=== PATIENT | male | born 1945 | race Caucasian/White ===

== ENCOUNTER → 2016-06-06 | Outpatient (CLI) | payer MEDICARE ==
[~2016-06-06] MED LIST: ALLOPURINOL100 MG PO; ASPIRIN EC325 MG PO; BUMEX DPS1 MG PO; CARDURA DPS8 MG PO; CATAPRES-DPS0.1 MG PO; CEFTIN DPS500 MG PO; COUMADIN DPS2 MG PO; DAILY MULTIPLE1 EAC1 PO; DESYREL-DPS50 MG PO; DILAUDID2 MG PO; DIOVAN160 MG PO; FEOSOL-DPS325 MG PO; FLOMAX DPS0.4 MG PO; LIPITOR80 MG PO; LOPRESSOR DPS100 MG PO; MELATONIN3 MG PO; MIRALAX PACKET17 GM PO; NEURONTIN DPS600 MG PO; NORVASC DPS10 MG PO; PLAVIX75 MG PO; PROTONIX40 MG PO; ROCALTROL DP0.25 MCG PO; SENOKOT DPS8.6 MG PO; SENOKOT S1 TAB PO; SURFAK DPS240 MG PO; TYLENOL DPS325 MG PO; VITAMIN B-121000 MCG PO; VITAMIN C250 MG PO; VITAMIN D1000 UNI1 PO; VITAMIN D3400 UNI1 PO; XANAX DPS0.25 MG PO; XANAX DPS0.5 MG PO; ZAROXOLYN2.5 MG PO
== END | disposition home or self-care (01) ==
LOC: THER.SSS 15:24
DX: R51 Headache (principal)

== ENCOUNTER 2016-06-15 18:09 | Inpatient (IN) | payer MEDICARE ==
[~2016-06-15] VITALS: Ht 182.9 cm; Wt 113.1 kg
[~2016-06-15 18:09] MED LIST changes: -ALLOPURINOL100 MG PO; -ASPIRIN EC325 MG PO; -CEFTIN DPS500 MG PO; -COUMADIN DPS2 MG PO; -DESYREL-DPS50 MG PO; -FEOSOL-DPS325 MG PO; -LIPITOR80 MG PO; -LOPRESSOR DPS100 MG PO; -MELATONIN3 MG PO; -MIRALAX PACKET17 GM PO; -NEURONTIN DPS600 MG PO; -NORVASC DPS10 MG PO; -PROTONIX40 MG PO; -ROCALTROL DP0.25 MCG PO; -VITAMIN B-121000 MCG PO; -VITAMIN D1000 UNI1 PO; -XANAX DPS0.5 MG PO
--- NOTE | 2016-06-16 13:34 | HP ---
ADMIT: 06/15/2016 RM/LOC: 413 [facility] MR#: [id number] [facility]#: [id number] [address] [place], [place] [address] SARAH HOPSON [address] [place] [address] History and Physical SEX: M AGE: 71 : 1945 DATE OF SERVICE: CHIEF COMPLAINT: Fall, mental status changes. HISTORY OF PRESENT ILLNESS: This is a 71-year-old male, who has past medical history of coronary artery disease, chronic kidney disease, diabetes, diastolic failure, presented after he was found down at home. He had been a little bit "off" and confused at home over the previous couple days. He had been not feeling very good from shoulder pain. He has known rotator cuff problems. He had taken some hydrocodone and some hydromorphone prior to his fall. He does not really know what caused him to fall, but he says he did try to get up multiple times and fell multiple times, he does not remember much about it. When the EMS came, he could move all extremities, a little bit confused. His thought he slurred speech a little, but everything seems to be back to normal. By this point, he is moving all extremities except for his right arm, he is quite sore because of his shoulder. He says he hurts all over from his fall. He is chronically on anticoagulation and reports he thinks his last INR was in normal range. Current time, he just complains some right side lower abdominal pain that hurt him when he pushes on it. He has been a little constipated over the previous few days, last bowel movement was Friday. He denies any chest pain, palpitations, shortness of breath, or otherwise. PAST MEDICAL HISTORY: Includes anemia; he has had abdominal aneurysm in the past, this was in 2013, ultrasound showed a 3.0. He has an iliac aneurysm, history of BPH with urinary retention. He has had some anxiety, AFib with RVR, Raya's esophagus with low-grade dysplasia. He has chronic diastolic congestive heart failure; coronary artery disease; diabetes, type 2, controlled. He has chronic anticoagulation with Coumadin, gout, hypercalcemia, hyperkalemia, hypertension, history of hypoxia. 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 PAST SURGICAL HISTORY: He has surgeries of laminectomy; shoulder cuff repair, 2 on the left, 1 on the right; tonsils and adenoids; total knee arthroplasty. MEDICATIONS: Per the admission medication list. ALLERGIES: TO AMLODIPINE/BENAZEPRIL AND VERAPAMIL. IMMUNIZATIONS: He had a flu shot this last fall. He had a Pneumovax in 2012 and Tdap in 2013. SOCIAL HISTORY: Mother had breast cancer, hypertension, and heart failure. Father had coronary artery disease and hypertension. Sister with breast cancer, coronary artery disease. He is a former smoker, quit in 1984. He is ADMIT: 06/15/2016 RM/LOC: 413 [facility] MR#: [id number] [address] [place] [id number] MARK ANTHONYSARAH SWEET [address] [place] [address] History and Physical SEX: M AGE: 71 : 1945 . REVIEW OF SYSTEMS: Other complete review of systems obtained and negative except as above. PHYSICAL EXAMINATION: GENERAL: This is a well-appearing 71-year-old gentleman. He is in no apparent distress. He is alert and oriented. VITAL SIGNS: Temp 98.5, blood pressure 134/60, pulse 90, respirations 14. Pain was 8/10. He is 91% on 2 L of oxygen by nasal cannula. HEAD: Normocephalic, atraumatic. NECK: Supple. Trachea midline. HEART: Regular rate and rhythm, but distant. LUNGS: Clear to auscultation bilaterally, but distant. ABDOMEN: Soft, protuberant. Right side abdomen is a little more firm and tender to deep palpation. EXTREMITIES: Lower extremities have 1+ edema bilaterally. He can move all extremities equally bilaterally. He can move all extremities. NEUROLOGICAL: Cranial nerves are intact. LABORATORY AND X-RAY DATA: He had CT of his head and neck, which was okay. Initial CBC showed a white count of 7.5, hemoglobin 7.0, platelets of 320, INR 3.40. His last CBC from March showed a hemoglobin of 10.6. CMP; sodium 139, potassium 3.4, BUN of 100, creatinine of 5.2. Last BUN was 86, creatinine of 4.01, albumin of 2.8. Alk phos, AST, ALT normal. CK is 426, troponin is 0.095, NT-proBNP is 5013. His last INR was May 20 with INR 3.4. ASSESSMENT: 1. Fall. 2. Some confusion. 3. Acute kidney injury on chronic kidney disease. 4. Mild elevated troponin. 5. Abdominal pain. 6. Acute anemia on top of anemia of chronic disease. 7. Chronic heart failure with preserved ejection fraction. 8. Diabetes. 9. Chronic anticoagulation with an INR of 3.41. 10.Obstructive sleep apnea. 11.Coronary artery disease. 12.I was just told by the nurse he had an elevated temperature, I do not ADMIT: 06/15/2016 RM/LOC: 413 [facility] MR#: [id number] [address] [id number] SARAH HOPSON [address] [place], [place] [id number] History and Physical SEX: M AGE: 71 : 1945 really know what it is right now. PLAN: He will be admitted to the hospital. I think he is a little on the dry side. His BUN is higher than normal and creatinine is elevated. To control his pain the best we can, give him some IV fluid, hold his Coumadin, checking a stat CT of his abdomen and pelvis. Because of his pain and acute drop in his hemoglobin, I am afraid he may have a bleed here. We will have him type and hold 2 units and then recheck his hemoglobin, it has been about 4 hours, so we are going to recheck hemoglobin now to make sure we are not trending down very quickly. We are to have labs checked for the morning with a CBC and a BMP. I am going to do a chest x-ray given he is on a little oxygen right now. Best Casanova MD/ olesya JOB #: [id number] CC: Best Casanova, Attending Physician Snow Nash, Family Physician
--- NOTE | 2016-06-16 19:34 | ER ---
ADMIT: 06/15/2016 RM/LOC: 413 [facility] MR#: [id number] [address] [address] SARAH HOPSON [address] [place] [address] Emergency Room Report SEX: M AGE: 71 : 1945 DATE: 06/15/2016 CHIEF COMPLAINT: Fall. HISTORY OF PRESENT ILLNESS: The patient is a 71-year-old male, who was last seen at 9:30 this morning. He has been having difficulty ambulating at home due to weakness, pending right rotator cuff repair, off anticoagulants since Friday, was transported by [place] with [facility]. Ogden Stroke Scale 0. The patient is a poor historian, but states for the past week, he has been increasingly weak much more so since Friday. Denies any fevers, chills, cough, substernal chest pain though he hurts everywhere in his body. Does admit to nausea, occasional vomiting. No diarrhea or urinary symptoms. ALLERGIES: NONE. MEDICATIONS: Please see nurse's MAR. ILLNESSES: Chronic renal failure, baseline creatinine 2.6; type 2 diabetes; hypertension; DJD; CHF; coronary artery disease, status post multiple PCI stents; status post CABG; GERD; kidney stones; skin cancer; obstructive sleep apnea with CPAP; BPH; anemia of chronic disease. OPERATIONS: Bilateral rotator cuff repair, left prepatellar bursectomy, multiple skin cancer removals, CABG, and PCI stents. 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 Quit smoking many years ago. FAMILY HISTORY: Negative per chart review. REVIEW OF SYSTEMS: A 12-point review of systems negative for all other systems, illnesses, or operations except as outlined above. PHYSICAL EXAMINATION: VITAL SIGNS: Temp 97; pulse 78; respirations 18; BP 107/58; SaO2 of 88% on room air, 93% on 2 L. GENERAL: Nontoxic, non-diaphoretic without jaundice or icterus. HEENT: Normocephalic. No evidence of epistaxis, rhinorrhea, or otorrhea. NECK: Supple without meningismus. Good carotid upstroke and volume without bruit. CHEST: Clear. Breath sounds equal, though diminished without rales, rhonchi, or wheeze. HEART: Regular rate, irregular rhythm with occasional extrasystole. Trace ankle edema noted. ABDOMEN: Obese, nontender, nondistended without mass or megaly. Bowel sounds hypoactive. EXTREMITIES: No evidence of Homans sign, synovitis, or dermatitis. NEURO: EOMI. PERRLA. No lateralizing signs noted. MENTAL STATUS: Alert, delirious. No hallucinations noted. ADMIT: 06/15/2016 RM/LOC: 413 [facility] MR#: [id number] [address] [address] MARK ANTHONYSARAH [address] [place] [address] Emergency Room Report SEX: M AGE: 71 : 1945 DIGITAL RECTAL: Moderate amount of stool in rectal vault. MEDICAL DECISION MAKING: CT head and neck shows no acute findings. Chest x- ray shows persistently elevated right hemidiaphragm unchanged from previous. Pelvis and right femur negative. EKG shows sinus rhythm with paired PVCs and lateral T-wave changes unchanged from previous. Creatinine 5.2, baseline 2.6; potassium 3.4; CK 426; troponin 0.095; BNP 5013; CRP 18.8; INR 3.41; lactic 1.6; hemoglobin 7.0, baseline 9.0; procalcitonin 0.36. Occult blood negative. We discussed findings and disposition with Dr. Casanova, who agreed to admit and gave orders to nursing staff. DIAGNOSES: 1. Hjqqi-ia-xyyjxif renal failure. 2. Anemia related to wgjis-gp-jolnchn renal failure. 3. Mechanical fall related to delirium from mvaau-gt-zfmblus renal failure. 4. Anticoagulated. 5. Chronic right rotator cuff syndrome, pending repair. RECOMMENDATION: Admit inpatient telemetry for Dr. Nash. ADMISSION/DISCHARGE CONDITION: Fair. CODE STATUS: The patient is a full code. Santos Clements MD/ angelal JOB #: [id number] CC: Best Casanova MD, Attending Physician Snow Nash MD, Family Physician
--- NOTE | 2016-06-18 10:44 | CO ---
ADMIT: 06/15/2016 RM/LOC: 413 [facility] MR#: [id number] [address] [facility] [address] [place] [phone] SARAH HOPSON [address] [place] [address] Consultation SEX: M AGE: 71 : 1945 DATE OF CONSULTATION: 06/17/2016 ATTENDING PHYSICIAN: Best Casanova CONSULTING PHYSICIAN: Isabel Rider MD REASON FOR CONSULTATION: Chronic kidney disease stage 5, anemia in chronic kidney disease. HISTORY OF PRESENT ILLNESS: David is a 71-year-old gentleman, who has advanced chronic kidney disease. I had last seen him in my clinic in the month of April. We had made plans for his advanced chronic kidney disease at this time, which had included an evaluation of vascular surgery and eventual goal of pursuing hemodialysis when he was to need renal replacement therapy. He presented to the hospital 2 days ago after having had 3 falls within a day. He notes that he had been feeling weak for about 3 days prior to this and had not been eating well. He has had some difficulty sleeping at night. He has also noticed some tremors. Otherwise, he denies any nausea or dyschezia. Appetite is okay now, but it has not been that great prior to his admission. He has been requiring high dose diuretics to maintain his volume status and his edema seems to be fairly well controlled. He denies any lower extremity edema. Denies any breathing complaints. He has pain in his right shoulder. 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 He has no other complaints. REVIEW OF SYSTEMS: A complete review of systems is negative in detail except as mentioned in history of present illness above. PAST MEDICAL HISTORY: 1. Hypertension. 2. Type 2 diabetes mellitus. 3. Coronary artery disease, status post CABG. 4. Depression. 5. Dyslipidemia. 6. Chronic kidney disease stage 5. 7. Renal osteodystrophy. ALLERGIES: NO KNOWN DRUG ALLERGIES. MEDICATIONS: Reviewed in the chart. 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 Lives in [place] with his . Quit smoking in the year 1993. Occasional alcohol use. No recreational drug use. FAMILY HISTORY: No family history of chronic kidney disease or renal replacement therapy. PHYSICAL EXAMINATION: VITAL SIGNS: Temperature 96.6 Fahrenheit, pulse 59, blood pressure 123/70. Ins and outs over the last 24 hours have been around 2 ADMIT: 06/15/2016 RM/LOC: 413 [facility] MR#: [id number] [address] [address] SARAH HOPSON [address] [place] [address] Consultation SEX: M AGE: 71 : 1945 L in and 2.[address] of urine output. GENERAL: He is in bed and appears pale. HEENT: Head is nontraumatic and normocephalic. Pale conjunctivae. Dry mucosa. NECK: Supple. No JVD. CHEST: Clear to auscultation CVS: Regular rhythm. S1 and S2 heard. No rubs, murmurs, or gallops. ABDOMEN: Soft, nontender. EXTREMITIES: Trace lower extremity edema. SKIN: No rash or nodules. NEUROLOGIC: Alert, awake, and oriented x3. He does have asterixis. MUSCULOSKELETAL: Major joints within normal limits. Range of motion within normal limits. PSYCHIATRIC: Affect and memory within normal limits. LABORATORY DATA: Reviewed. BMP with sodium 139, potassium 3.8, CO2 of 28, BUN 93, creatinine 4.6, hemoglobin 6.7, calcium 8.8, and albumin 2.8. Serum iron was 22, TIBC 311, and ferritin level was 543. ASSESSMENT/PLAN: 1. Chronic kidney disease stage 5. 2. Azotemia/uremia. 3. Anemia - iron deficiency plus anemia of chronic kidney disease. 4. Renal osteodystrophy. He does have subtle uremic symptoms such as tremors and inability to sleep at night. He also has an asterixis that could likely be secondary to uremia. He is getting iron as well as Aranesp and blood transfusion for his anemia. He will continue calcitriol for his renal osteodystrophy. ADMIT: 06/15/2016 RM/LOC: 413 [facility] MR#: [id number] [address] [address] SARAH HOPSON [address] [place] [address] Consultation SEX: M AGE: 71 : 1945 He has not yet followed up with Vascular Surgery and he would likely need to do that as an outpatient. Considering his uremic symptoms and other sequelae of chronic kidney disease, I do think he will benefit from renal replacement therapy. We have had these discussions previously and he is agreeable to proceeding with hemodialysis at this time. He would want to discuss this with his as well. I will plan to obtain a dialysis catheter by Interventional Radiology and start hemodialysis with the eventual goal of transitioning him to home hemodialysis. Thank you for this consultation and allowing me the opportunity to participate in this patient's care. Please do not hesitate to contact me with any questions. Isabel Rider MD/ olesya JOB #: [id number] CC: Best Casanova, Attending Physician Snow Nash, Family Physician
--- NOTE | 2016-06-20 09:09 | CO ---
ADMIT: 06/15/2016 RM/LOC: 413 [facility] MR#: [id number] [address] [address] SARAH HOPSON [address] [place] [address] Consultation Report SEX: M AGE: 71 : 1945 DATE OF CONSULTATION: 06/19/2016 ATTENDING PHYSICIAN: Best Casanova CONSULTING PHYSICIAN: Palmer Rodriguez MD REASON FOR CONSULTATION: Anemia, rule out upper gastrointestinal bleed. HISTORY OF PRESENT ILLNESS: Sarah is a very pleasant, 71-year-old male, who has been admitted to the hospital back on the for a fall, mental status changes, and acute kidney injury. At that time, he was also found to be anemic with a hemoglobin around 7. Since his hospital stay, he has received a couple transfusions of packed red blood cells. Today, he endorses some weakness, nausea, and abdominal pain. His abdominal pain is more dull and diffuse throughout his abdomen. His last bowel movement was yesterday, which did appear to be dark, but since then, he has been constipated, bowel movement prior to that was about a week ago. He denies any hematemesis, bright red blood per rectum. Of note, home med list includes Coumadin, aspirin, and Plavix. He has a pretty extensive cardiac history, please see below. His last EGD and colonoscopy was performed approximately two years ago, performed in [place], which at that time, they found some benign-appearing polyps and hiatal hernia. He does have a history of Raya's esophagus. PAST MEDICAL HISTORY: Significant for: 1. Coronary artery disease. 2. Abdominal aortic aneurysm. 3. Atrial fibrillation. 4. Raya's esophagus. 5. Anxiety. 6. Diastolic heart failure. 7. Type 2 diabetes. 8. Hypertension. 9. Hypoxemia. 10.Idiopathic peripheral neuropathy. 11.Insomnia. 12.Lumbar disc disease. 13.Hyperlipidemia. 14.Urolithiasis. 15.PATRICK. 16.Osteoarthritis. 17.Pulmonary hypertension. 18.Restless legs syndrome. 19.CA x3. PAST SURGICAL HISTORY: 1. EGD and colonoscopy last performed two years ago, please see HPI. 2. Cardiac stent x4. 3. CABG x3. 4. Tonsillectomy and adenoidectomy. ADMIT: 06/15/2016 RM/LOC: 413 [facility] MR#: [id number] [address] [address] SARAH HOPSON [address] [place] [address] Consultation Report SEX: M AGE: 71 : 1945 5. Laminectomy. 6. Shoulder cuff repair. 7. TKA. ALLERGIES: NO KNOWN DRUG ALLERGIES. MEDICATIONS: Well documented in chart. FAMILY HISTORY: The patient reports some GI disturbances with his sister, who is now . He cannot determine exactly what the pathology was. SOCIAL HISTORY: The patient is a former smoker, but quit 35 years ago. He is a rare alcohol user, but denies any illicit drug use. REVIEW OF SYSTEMS: CONSTITUTIONAL: The patient denies any fever, chills, or night sweats. The rest of comprehensive 10-point review of systems was performed and all other systems are negative. PHYSICAL EXAMINATION: GENERAL: The patient is in no acute distress. He is alert and oriented. HEENT: Head is normocephalic and atraumatic. EOMS are intact. Conjunctivae free of icterus, erythema, or pallor. Pinnae, free of deformities. Nose, midline. No tracheal deviation. NECK: Supple. SKIN: Negative for jaundice, clubbing, edema, pallor, or cyanosis. LUNGS: Normal respiratory effort. HEART: Distal pulses intact. Regular rate and rhythm at this time. ABDOMEN: Soft, nondistended, some mild tenderness in the epigastric region. NEURO: Grossly intact. ADMIT: 06/15/2016 RM/LOC: 413 [facility] MR#: [id number] [address] [address] SARAH HOPSON [address] [place] [address] Consultation Report SEX: M AGE: 71 : 1945 LABORATORY DATA: Hemoglobin is 9.0. ASSESSMENT: Anemia, question upper gastrointestinal blood loss. PLAN: The plan is to have the patient undergo EGD performed by Dr. Rodriguez tomorrow. I discussed the risks, alternatives, benefits, and complications of the procedure with the patient to which he has agreement of this plan. I had all his questions answered, and would like to proceed. I will get him on the schedule, get him consented and see him tomorrow. Thanks for the consultation of this patient. MATTHIAS Grant / Palmer Rodriguez MD / olesya JOB #: [id number] CC: Best Casanova, Attending Physician Snow Nash, Family Physician
[2016-06-22] MEDS ORDERED: LOPRESSOR DPS100 MG PO (14:50)
[2016-06-22] MEDS ORDERED: ASPIRIN EC325 MG PO (14:50)
[2016-06-22] MEDS ORDERED: PROTONIX40 MG PO (14:51)
[2016-06-22] MEDS ORDERED: NEURONTIN DPS600 MG PO (14:51)
[2016-06-22] MEDS ORDERED: DESYREL-DPS50 MG PO (14:51)
[2016-06-22] MEDS ORDERED: XANAX DPS0.5 MG PO (14:52)
[2016-06-22] MEDS ORDERED: LIPITOR80 MG PO (14:53)
[2016-06-22] MEDS ORDERED: FEOSOL-DPS325 MG PO (14:53)
[2016-06-22] MEDS ORDERED: COUMADIN DPS2 MG PO (14:54)
[2016-06-22] MEDS ORDERED: ALLOPURINOL100 MG PO (14:54)
[2016-06-22] MEDS ORDERED: VITAMIN D1000 UNI1 PO (14:54)
[2016-06-22] MEDS ORDERED: NORVASC DPS10 MG PO (14:55)
[2016-06-22] MEDS ORDERED: ROCALTROL DP0.25 MCG PO (14:55)
[2016-06-22] MEDS ORDERED: MELATONIN3 MG PO (14:56)
[2016-06-22] MEDS ORDERED: MIRALAX PACKET17 GM PO (14:57)
[2016-06-22] MEDS ORDERED: CEFTIN DPS500 MG PO (14:57)
[2016-06-22] MEDS ORDERED: VITAMIN B-121000 MCG PO (14:57)
[2016-06-22] MEDS ORDERED: DILAUDID2 MG PO (14:58)
--- NOTE | 2016-06-24 12:00 | CO ---
ADMIT: 06/15/2016 RM/LOC: 413 [facility] MR#: [id number] [facility]#: [id number] [address] [address] SARAH HOPSON [address] [place] [address] Consultation SEX: M AGE: 71 : 1945 DATE OF CONSULTATION: 06/17/2016 ATTENDING PHYSICIAN: Best Casanova CONSULTING PHYSICIAN: Kelly Hobson MD CHIEF COMPLAINT: Right shoulder pain. HISTORY: This 71-year-old gentleman presented to the emergency room after a fall at home. He was found confused and unsure as to when he fell, but he said he has tried getting up multiple times and was unable to. He actually had pain in his right shoulder prior to that time, and had an appointment with me today in my office which obviously he did not keep because of his hospitalization over the weekend. His past medical history is significant for coronary artery disease, chronic kidney disease, diabetes, and diastolic heart failure. He is on chronic anticoagulation. His primary complaint as I evaluate him here in the hospital is complaints of his right shoulder pain. He says it is painful enough that he cannot really even raise that. He had x- rays of his clavicle but not any dedicated shoulder films. PAST MEDICAL HISTORY: As indicated he has a history of coronary artery disease, chronic kidney disease, diabetes, diastolic heart failure, benign prosthetic hypertrophy, Raya's esophagus, type 2 diabetes, history of gout, peripheral neuropathy, spinal stenosis, obstructive sleep apnea. PAST SURGICAL HISTORY: Includes: 1. Lumbar laminectomy. 2. Right rotator cuff repair x2. 3. Left rotator cuff repair x1. 4. Tonsillectomy and adenoidectomy. 5. Total knee arthroplasty. MEDICATIONS: Listed in the chart. ALLERGIES: HE IS ALLERGIC TO VERAPAMIL AND AMLODIPINE. SOCIAL HISTORY: He and his live in [facility]. His physician is Dr. Nash here in town. He was a smoker at one time, but he says he quit back in the mid 80s. 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 FAMILY HISTORY: Positive for cancer, hypertension, heart failure. REVIEW OF SYSTEMS: Noncontributory. ADMIT: 06/15/2016 RM/LOC: 413 [facility] MR#: [id number] [address] [address] SARAH HOPSON [address] [place] [address] Consultation SEX: M AGE: 71 : 1945 PHYSICAL EXAMINATION: Marked tenderness about the right shoulder and marked pain with attempts at passive range of motion. No obvious effusion. Clavicle x-rays were negative. There are no shoulder x-rays at this time. IMPRESSION: Chronic right shoulder pain. Rule out rotator cuff arthropathy. RECOMMENDATIONS: 1. Dedicated shoulder films AP and Y scapular view of the shoulder. 2. When he is stable enough, we would like to obtain an MRI of the right shoulder. 3. I will re-evaluate the patient once we have been able to evaluate both the radiographs and MRI and proceed accordingly. Kelly Hobson MD/ olesya JOB #: [id number] CC: Best Casanova, Attending Physician Snow Nash, Family Physician
--- NOTE | 2016-06-28 17:29 | CO ---
ADMIT: 06/15/2016 RM/LOC: [facility] MR#: [id number] [address] [address] SARAH HOPSON [address] [place] [address] Consultation SEX: M AGE: 71 : 1945 DATE OF CONSULTATION: 06/18/2016 ATTENDING PHYSICIAN: Best Casanova CONSULTING PHYSICIAN: Donald Hyatt MD REASON FOR CONSULT: History of atrial fibrillation and coronary artery disease. This is Екатерина Delacruz RN, scribing for Dr. Donald Hyatt. HISTORY OF PRESENT ILLNESS: Jovi is a pleasant, 71-year-old gentleman, I am familiar with, and I have been asked to see in Cardiology consultation by Dr. Snow Nash in regard to his history of coronary artery disease and atrial fibrillation. He follows regularly with me at [facility] and was last seen in January of 2016. He has history of paroxysmal atrial fibrillation, hyperlipidemia, hypertension, diabetes, and former tobacco use. He also has history of coronary disease, status post 3-vessel bypass in 2001 [place]BERRY to [place], radial artery graft OM2 and SVG to PDA. Last cardiac catheterization was in 2013 showing radiograph widely patent, SVG to right PDA 50%, ostial, mid, and distal lesions, and MAYBERRY to L[place] widely patent. After his last office visit, he did have ABIs performed, and they did not show any significant disease. He does have history of sleep apnea and uses BiPAP at home. Holter monitor done in 2013, did not demonstrate any evidence of atrial fibrillation. He has been on Coumadin for his history of atrial fibrillation along with Plavix and aspirin for his history of coronary disease. Jovi presented to [facility] by EMS after being found unconscious. He has been following with Nephrology and has been teetering on needing dialysis for a period of time, and he is being working with Dr. Rider regarding that. He was found unconscious, sounds like he had taken some Lortab also, and by the time EMS arrived, he was alert and able to move all extremities. Since this hospitalization, he has not had any significant arrhythmias or bradycardia and has not had any further syncopal episodes. He had stopped all of his anticoagulation medications and anti-platelet medications in anticipation of needing a right shoulder surgery and was actually supposed to see Dr. Hobson around the time that he was admitted. He denies any chest pain, shortness of breath, palpitations, peripheral edema, or orthopnea. He is now requiring hemodialysis for acute on chronic stage 5 chronic kidney disease. PAST MEDICAL HISTORY: 1. Atrial fibrillation. 2. Chronic diastolic heart failure. 3. Coronary artery disease as outlined above. 4. Former tobacco use. 5. Hypertension. 6. Hyperlipidemia. 7. Diabetes. ADMIT: 06/15/2016 RM/LOC: [facility] MR#: [id number] [address] [place] [id number] MARK ANTHONY SARAH [address] [place] [address] Consultation SEX: M AGE: 71 : 1945 8. AAA of 3.8 cm widest measurement. 9. Pulmonary hypertension. 10.Obstructive sleep apnea, on BiPAP. 11.Dysphagia. 12.Raya's esophagus. 13.BPH. 14.Kidney stones. 15.Acute on chronic kidney disease, stage 5. 16.Lumbar disc disease. 17.Osteoarthritis. 18.Gout. 19.Acute on chronic anemia. 20.Restless legs syndrome. 21.Idiopathic peripheral neuropathy. 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 23.Anxiety. 24.Insomnia. 25.Chronic headaches. PAST SURGICAL HISTORY: Includes: 1. Septoplasty. 2. Lithotripsy. 3. Tonsillectomy with adenoidectomy. 4. Right rotator cuff repair x1. 5. Left rotator cuff repair x2. 6. Laminectomy. 7. Total knee arthroplasty. ALLERGIES: NORVASC, BENAZEPRIL, AND VERAPAMIL. MEDICATIONS: Current medications include: 1. Desyrel 50 at bedtime. 2. Iron 325 at bedtime. 3. Lipitor 80 at bedtime. 4. MiraLax 17 daily. 5. Neurontin 600 at bedtime. 6. Rocaltrol 0.25 Friday, Friday, and Friday. 7. Toprol-XL 100 b.i.d. 8. Vitamin B12 of 1000 mg daily. 9. Zyloprim 200 daily. 10.NovoLog a.c. and at bedtime. 11.Lasix 40 IV one time dose yesterday. 12.Rocephin 2 g IV q.24 hours. FAMILY HISTORY: Positive family history of heart disease in dad with coronary artery disease. Positive family history of breast cancer in mom and sister. SOCIAL HISTORY: Jovi is . He lives at home with his . He denies ADMIT: 06/15/2016 RM/LOC: [facility] MR#: [id number] [address] [place] [id number] [place] [address] Consultation SEX: M AGE: 71 : 1945 any special diet, alcohol, or drug use. He quit smoking in 1984. REVIEW OF SYSTEMS: GENERAL: Denies any recent fatigue, fever, chills, or sweats or weight changes. He has been working on weight loss, in over several months, he has lost about 30 pounds. EYES: Denies double vision, blurred vision, cataracts, or glaucoma. ENT: Denies hearing loss or problems with nose, mouth or throat RESPIRATORY: Pulmonary hypertension and obstructive sleep apnea, on BiPAP. Denies any hemoptysis. GASTROINTESTINAL: History of low-grade dysphagia, Raya's esophagus. Denies any acid reflux currently or GI bleeding. GENITOURINARY: History of kidney stones with lithotripsy. He has acute on chronic kidney disease stage 5, requiring hemodialysis. MUSCULOSKELETAL: History of lumbar disc disease, osteoarthritis, and gout. ENDOCRINE: History of diabetes. Denies thyroid disease. HEMATOLOGY: Acute on chronic anemia. Denies any cancer. NEUROLOGIC: History of restless legs syndrome, idiopathic peripheral neuropathy, phrenic nerve palsy. No stroke or seizure. PSYCHIATRIC: History of anxiety. PHYSICAL EXAMINATION: VITAL SIGNS: Blood pressure 128/57, heart rate 64, respirations 16, temperature 98.2, oxygenation 94% on O2. SKIN: [place], warm and dry. EYES: Sclerae clear. No xanthelasmas. ENT: Oral mucosa is pink and moist. No jugular venous distention or carotid bruits. CHEST: Respirations are even and unlabored. Lungs are clear to auscultation. HEART: Irregularly irregular. No murmurs, gallops, or rubs. ABDOMEN: Soft and nontender. MUSCULOSKELETAL: Gait is normal. EXTREMITIES: Discolored, trivial edema bilaterally. PSYCHIATRIC: Alert and oriented. Mood and affect are appropriate. DIAGNOSTIC DATA: Sodium 138, potassium 3.7, BUN 91, creatinine 4.1, glucose 104, INR 1.64. White blood cell count 5.1, hemoglobin 8.5, hematocrit 27.0, and platelets 317. Parathyroid 180.6. ASSESSMENT AND PLAN: 1. Coronary artery disease. 2. Chronic kidney disease, stage 5. 3. Right shoulder pain. 4. Sleep apnea. 5. Diabetes. 6. History of atrial fibrillation. Jovi is a pleasant 71-year-old male with coronary artery disease, status post bypass 2001, and paroxysmal atrial fibrillation. He struggles with shoulder pain and is admitted with weakness and now starting dialysis for progressive chronic kidney disease. ADMIT: 06/15/2016 RM/LOC: [facility] MR#: [id number] [address] [address] SARAH HOPSON [address] [place] [address] Consultation SEX: M AGE: 71 : 1945 I have reviewed his chart. I recommend continuing Coumadin for atrial fibrillation and continuing aspirin for his coronary artery disease and he can stop Plavix at this time. He has had no angina or indication of significant arrhythmias that would have caused his syncope. I think he is at acceptable and [id number] risk if he requires surgical intervention of his shoulder. Thank you for the consultation. I have read and agree with the documentation that has been completed regarding this visit. By signing this record, I attest that the documentation was completed in my physical presence and is an accurate record of the encounter. Екатерина Delacruz RN / Donald Hyatt MD / olesya JOB #: [id number] CC: Best Casanova, Attending Physician Snow Nash, Family Physician
--- NOTE | 2016-07-01 01:17 | DS ---
ADMIT: 06/15/2016 RM/LOC: [facility] MR#: [id number] [address] [address] SARAH HOPSON [address] [place] [address] Discharge Summary SEX: M AGE: 71 : 1945 ADMISSION DATE: 06/15/2016 DISCHARGE DATE: 06/21/2016 DIAGNOSES: 1. Acute on chronic renal failure. 2. Fall at home. 3. Elevated troponin. 4. Atrial fibrillation. 5. Anticoagulation. 6. Diabetes. 7. Anemia-chronic disease with acute decrease. 8. End-stage renal disease with uremia. 9. Chronic heart failure. 10.Coronary artery disease. 11.Obstructive sleep apnea. 12.Hypertension. 13.Right lower lobe infiltrate. 14.AAA-slight increase size 2.9 up to 3.8 cm. 15.Iliac artery aneurysm. 16.Raya's esophagus. PROCEDURE: 1. PRBC x3. 2. CT head 06/15/2016. 3. CT cervical spine 06/15/2016. 4. CT abdomen and pelvis 06/15/2016. 5. Dialysis catheter 06/21/2016 temporary and 06/19/2016 tunneled. 6. MRI right shoulder 06/18/2016. 7. Right shoulder steroid injection 06/18/2016. 8. EGD 06/19/2016. 9. Dialysis multiple times. CONSULT: 1. Kelly Hobson MD. 2. Isabel Rider MD. 3. FANTA. 4. Surgery. REASON FOR HOSPITALIZATION: Fall, see dictated H and P. LABORATORY AND X-RAY DATA: Sodium 139 down to 138, potassium 3.4 (final value 3.3), chloride 102 (final value 101), BUN 100 down to 27, creatinine 5.2 down to 2.5. Calcium 8.8, phosphorus 4.4, total bilirubin 0.3, total protein 7, albumin 2.8, alkaline phosphatase 31, AST 15, iron 22, TIBC 311, CK 426, CK-MB 3.2, troponin 0.095, proBNP 5013. CRP 18.8, INR 3.41 on admission with 1.32 final value on the 15. Blood sugars were variable but actually pretty good. White count 8.6, hemoglobin 7 (did go down to 6.7, final value 9.9), platelet count 361. Sedimentation rate 43, hepatitis B core IgM and hepatitis BE antibody both negative, procalcitonin 0.36, lactic acid 1.6, PTH was 180.6, ADMIT: 06/15/2016 RM/LOC: [facility] MR#: [id number] [address] [place] [id number] [facility] [address] [place] [address] Discharge Summary SEX: M AGE: 71 : 1945 hepatitis B surface antigen and hepatitis C antibody all negative. On 06/18/2016, HIV 1 and 2 were negative. EGD biopsy with no abnormalities. CT scan of the head was normal. CT scan of the cervical spine with degenerative changes. Chest x-ray with discoid atelectasis of the right base. X-ray of the pelvis and femur were unremarkable. CT scan of the abdomen and pelvis with increase in size of the abdominal aortic aneurysm and a left iliac artery aneurysm as well as atelectasis of the right lower lobe. The abdomen measures 3.8 cm up from 2.9, and the iliac artery is 2.3 up from 2. X-ray of the clavicle showed degenerative changes. MRI of the shoulder with chronic full- thickness rotator cuff tear, large joint effusion, and some DJD. Final chest x-ray with elevated right hemidiaphragm noted. COURSE IN HOSPITAL: Sarah was admitted after a fall at home. He was noted to be in acute decompensation of his renal failure. Morphine was given for pain as he was quite uncomfortable. Hydrocodone and Dilaudid were also ordered. Coumadin was held due to his INR being elevated. His hemoglobin was down, he was given 1 unit of blood initially and then unfortunately continued to decrease so we gave him 2 more and then it stabilized. With regards to his renal function, there was no obvious cause of decompensation except for the fact that he had an dose increase in his diuretic therapy recently, and he was taking pain medications because of his shoulder. He was given Aranesp because of his anemia and started on Rocephin because of the pulmonary abnormalities. In looking at his decompensation and the fact that things were not improving very well, I did have Dr. Rider see him who has seen in the past, and he was supposed to be getting a fistula placed. Blood count was still low so he was given a total of 3 units of blood. INR remained high so his vitamin K was given at 2.[address] Hobson was asked to see for his shoulder as he has been seeing him as an outpatient. In addition, Cardiology was asked to see because of his underlying issues and whether or not to be a candidate for anything. He did get started on dialysis due to his problems. He tolerated this quite well and underwent it multiple times. He had a temporary and subsequently a tunneled catheter placed with success. MRI of the shoulder showed the abnormalities. An injection of steroids was tried to see if that would help. [facility] was contacted again and just followed along. They felt he did not need to continue the Plavix, but he would stay on aspirin and Coumadin. If needed, he could do a surgical intervention of his shoulder in their opinion. He continued with dialysis and continued to improve. He had minimal if any symptoms of his lung issues. We did go ahead and frame changer to oral medication to complete a 10 day course on discharge. Because of his anemia and history of Raya's, an EGD was performed and thankfully everything was fine. He had a final dialysis and felt ready to be dismissed. He will have close followup. His Coumadin will be decreased. It was felt that he would be ready for discharge. He is going to be having dialysis early Friday and then going to [place] to get a fistula placed. He will also have a pro time on that day. DISCHARGE MEDICATIONS: 1. Coumadin 2 mg 1/2 pill daily, which was decreased as I know he will be ADMIT: 06/15/2016 RM/LOC: [facility] MR#: [id number] [address] [address] SARAH HOPSON [address] [place] [address] Discharge Summary SEX: M AGE: 71 : 1945 having a fistula placed very soon so we will need to stop it anyway. Other medications include: 1. Desyrel 50 mg at bedtime. 2. Iron 325 daily. 3. Lipitor 80 mg at bedtime. 4. Melatonin 9 mg at bedtime. 5. MiraLAX daily. 6. Neurontin 600 at bedtime. 7. Norvasc 5 mg daily. 8. Protonix 40 b.i.d. 9. Rocaltrol 0.25 Qdlawv-Psfpughfb-Bdzpae. 10.Toprol-XL 100 mg b.i.d. 11.Vitamin B12 1000 mcg daily. 12.Allopurinol 200 mg daily. 13.Ceftin 250 b.i.d. for 3 days. 14.Dilaudid 2 mg q.6h p.r.n. 15.BiPAP at night with O2. 16.Aspirin 325 mg daily. 17.Xanax 0.5 1/2 to 1 q.8h p.r.n. vitamin D3 1000 international units daily. He will have a protime on Friday and have an appointment with me in 6-8 weeks. He will follow up with [facility] and Dr. Rider as written. Overall prognosis is fair. Time spent 1 hour. Snow Nash MD/ nanci JOB #: [id number] CC: Best Casanova MD, Attending Physician Snow Nash MD, Family Physician
--- NOTE | 2016-07-17 10:44 | OR ---
ADMIT: 06/15/2016 RM/LOC: [facility] MR#: [id number] [address] [address] SARAH HOPSON [address] [place] [address] Operative/Delivery Room Report SEX: M AGE: 71 : 1945 SURGERY DATE: 06/20/2016 SURGEON: Palmer Rodriguez MD PREOPERATIVE DIAGNOSES: Anemia and melena, question upper gastrointestinal blood loss. POSTOPERATIVE DIAGNOSES: 1. Mild diffuse gastritis. 2. Really no evidence of Raya's esophagus. PROCEDURE PERFORMED: EGD with biopsy. ANESTHESIA: Sedation. ESTIMATED BLOOD LOSS: None. DESCRIPTION OF PROCEDURE: After appropriate informed consent was obtained, the patient was brought to the endoscopy suite. IV sedation was provided. A well-lubricated endoscope was introduced and passed down the esophagus. The esophageal mucosa appeared normal throughout. The GE junction appeared really pretty sharp and distinct. No evidence of hiatal hernia. No evidence of any reflux changes or Raya's esophagus. The scope was advanced to the stomach. He had diffuse mild gastritis, couple areas just focally with some old blood, but no ulceration, no active bleeding. The pylorus was intubated. Duodenal bulb, second and third portion of duodenum appeared normal. The scope was then pulled back into the stomach, retroflexed, revealing no hiatal hernia from below, and again just this mild proximal gastritis. Several biopsies were taken of the antrum. Biopsies also taken of the fundus. Lastly, multiple biopsies were taken at the GE junction. The stomach was then deflated and scope was withdrawn without any apparent complications. The patient tolerated the procedure well and was taken to the recovery room in stable condition. Palmer Rodriguez MD/ olesya JOB #: [id number] CC: Best Casanova, Attending Physician Snow Nash, Family Physician Snow Nash MD
--- NOTE | 2016-07-17 10:44 | CO ---
ADMIT: 06/15/2016 RM/LOC: 413 [facility] MR#: [id number] [address] [address] SARAH HOPSON [address] [place] [address] Consultation SEX: M AGE: 71 : 1945 DATE OF CONSULTATION: 06/19/2016 ATTENDING PHYSICIAN: Best Casanova CONSULTING PHYSICIAN: Palmer Rodriguez MD CHIEF COMPLAINT: Anemia, melena. HISTORY: This is a patient of Dr. Cottrell, I was asked to see in surgical consultation. He has had some melena, low blood count, low hemoglobin, so concern for an upper GI bleed. On exam, his abdomen is soft. It is nontender. ASSESSMENT: Anemia, melena, and possible upper gastrointestinal bleed. PLAN: We will plan on upper endoscopy for him tomorrow. I have gone through risks and benefits of this procedure. He understands all of this and agrees to proceed. Palmer Rodriguez MD/ angelal JOB #: [id number] CC: Best Casanova, Attending Physician Snow Nash, Family Physician
== END 2016-06-21 17:25 | disposition home or self-care (01) | DRG 673 ==
LOC: ER 18:09 → 4PCU 20:15
PROVIDERS: ADMIT Internal Medicine
PROC: 30233N1 Transfusion of Nonautologous Red Blood Cells into Peripheral Vein, Percutaneous Approach (ICD-10-PCS; 2016-06-16)
PROC: 02HV33Z Insertion of Infusion Device into Superior Vena Cava, Percutaneous Approach (ICD-10-PCS; 2016-06-17)
PROC: B518ZZA Fluoroscopy of Superior Vena Cava, Guidance (ICD-10-PCS; 2016-06-17)
PROC: B543ZZA Ultrasonography of Right Jugular Veins, Guidance (ICD-10-PCS; 2016-06-17)
PROC: 5A1D60Z (ICD-10-PCS; 2016-06-19)
PROC: 3E0U33Z Introduction of Anti-inflammatory into Joints, Percutaneous Approach (ICD-10-PCS; 2016-06-19)
PROC: 0JH63XZ Insertion of Tunneled Vascular Access Device into Chest Subcutaneous Tissue and Fascia, Percutaneous Approach (ICD-10-PCS; 2016-06-19)
PROC: 0DB68ZX Excision of Stomach, Via Natural or Artificial Opening Endoscopic, Diagnostic (ICD-10-PCS; principal; 2016-06-20)
DX: N17.9 Acute kidney failure, unspecified (principal); J18.9 Pneumonia, unspecified organism; I13.2 Hypertensive heart and chronic kidney disease with heart failure and with stage 5 chronic kidney disease, or end stage renal disease; F05 Delirium due to known physiological condition; E11.22 Type 2 diabetes mellitus with diabetic chronic kidney disease; I27.2 Other secondary pulmonary hypertension; E11.42 Type 2 diabetes mellitus with diabetic polyneuropathy; R13.10 Dysphagia, unspecified; I50.32 Chronic diastolic (congestive) heart failure; N18.5 Chronic kidney disease, stage 5; R79.1 Abnormal coagulation profile; R79.89 Other specified abnormal findings of blood chemistry; I48.0 Paroxysmal atrial fibrillation; I72.3 Aneurysm of iliac artery; G25.81 Restless legs syndrome; K29.70 Gastritis, unspecified, without bleeding; E78.5 Hyperlipidemia, unspecified; M75.101 Unspecified rotator cuff tear or rupture of right shoulder, not specified as traumatic; M19.90 Unspecified osteoarthritis, unspecified site; K21.9 Gastro-esophageal reflux disease without esophagitis; I71.4 Abdominal aortic aneurysm, without rupture; F41.9 Anxiety disorder, unspecified; D63.1 Anemia in chronic kidney disease; N25.0 Renal osteodystrophy; M10.9 Gout, unspecified; E29.1 Testicular hypofunction; I25.2 Old myocardial infarction; G47.00 Insomnia, unspecified; N40.1 Benign prostatic hyperplasia with lower urinary tract symptoms; R33.9 Retention of urine, unspecified; G47.33 Obstructive sleep apnea (adult) (pediatric); I25.10 Atherosclerotic heart disease of native coronary artery without angina pectoris; Z95.5 Presence of coronary angioplasty implant and graft; Z95.1 Presence of aortocoronary bypass graft; Z87.442 Personal history of urinary calculi; Z85.828 Personal history of other malignant neoplasm of skin; Z87.891 Personal history of nicotine dependence; Z79.01 Long term (current) use of anticoagulants; Z96.651 Presence of right artificial knee joint; Z82.49 Family history of ischemic heart disease and other diseases of the circulatory system; Z79.82 Long term (current) use of aspirin; Z79.4 Long term (current) use of insulin

== ENCOUNTER → 2016-07-26 | Outpatient (CLI) | payer MEDICARE ==
[~2016-07-26] MED LIST changes: +ALLOPURINOL100 MG PO; +ASPIRIN EC325 MG PO; +CEFTIN DPS500 MG PO; +COUMADIN DPS2 MG PO; +DESYREL-DPS50 MG PO; +FEOSOL-DPS325 MG PO; +LIPITOR80 MG PO; +LOPRESSOR DPS100 MG PO; +MELATONIN3 MG PO; +MIRALAX PACKET17 GM PO; +NEURONTIN DPS600 MG PO; +NORVASC DPS10 MG PO; +PROTONIX40 MG PO; +ROCALTROL DP0.25 MCG PO; +VITAMIN B-121000 MCG PO; +VITAMIN D1000 UNI1 PO; +XANAX DPS0.5 MG PO
== END | disposition home or self-care (01) ==
LOC: THER.SSS 07:49 → EDSTATUS 11:36 → THER.SSS 11:36
DX: R51 Headache (principal); R11.2 Nausea with vomiting, unspecified

== ENCOUNTER → 2016-08-21 | Outpatient (CLI) | payer MEDICARE | END | disposition home or self-care (01) | LOC: THER.SSS 16:54 | DX: R51 Headache (principal) ==